=== PATIENT | female | born 1970 | race Caucasian/White ===

== ENCOUNTER → 2023-04-29 | Outpatient (CLI) | payer OTHER, SELFPAY ==
--- NOTE | 2023-04-29 12:53 | RAD_ITS ---
STUDY: X-RAY - LUMBOSACRAL SPINE REASON FOR EXAM: Female, 52 years old. Radiculopathy. TECHNIQUE: 6 view(s) of the lumbosacral spine, including lateral flexion and extension views were obtained. COMPARISON: None FINDINGS: Normal lumbar lordosis. No substantial scoliosis. Normal alignment of the vertebrae. Normal vertebral bodies and endplates. Normal disc space heights. Limited flexion and extension with no abnormal motion. Normal visualized soft tissue structures. RAD/L/S Spine Comp/w Bending Views IMPRESSION: Limited flexion and extension with no abnormal motion. No other abnormality Electronically Signed: Dariusz Albrecht MD at 14:33 EST ,
--- OUTSIDE RECORDS SUMMARY | 2023-04-29 13:21 | XMS RPT_ITS | CCD ---
Author Name Unknown Address [address] [place] [address] Organization [facility] Care Team Providers [facility] Clinical Marketer Name Role Phone DheerajApoorva escalante Unavailable Unavailable Keller, Ronan Unavailable Unavailable Deepika Palma Unavailable Unavailable Hue Manzo Unavailable Unavailable Tammie Mendoza Unavailable Unavailable Son Porter Primary Care Provider PREBISH, JM BORGES Admitting Unavailable PREBISH, JM BORGES Attending Unavailable PREBISH, JM BORGES Primary Care Unavailable KELLER, RONAN J Consulting Unavailable PROVIDER, UNKNOWN Consulting Unavailable KELLER, RONAN J Admitting Unavailable KELLER, RONAN J Attending Unavailable KELLER, RONAN J Primary Care Unavailable KELLER, RONAN J Consulting Unavailable PROVIDER, UNKNOWN Consulting Unavailable KELLER, RONAN J Admitting Unavailable KELLER, RONAN J Attending Unavailable KELLER, RONAN J Primary Care Unavailable KELLER, RONAN J Consulting Unavailable PROVIDER, UNKNOWN Consulting Unavailable REGAN LAWTON Admitting Unavailable REGAN LAWTON Attending Unavailable SUHA, REGAN T Primary Care Unavailable KELLER, RONAN J Consulting Unavailable PROVIDER, UNKNOWN Consulting Unavailable YASMINE PETIT Attending Unavailable SON PORTER Primary Care Unavailable TAYLOR SALAZAR Attending Unavail able TAYLOR SALAZAR Referring Unavail able SON PORTER Primary Care Unavailable Ronan Keller PA-C Unavailable Ronan Keller PA-C Unavailable [facility] Unavailable [phone] [facility] Unavailable [facility], . Unavailable Son Porter MD Unavailable Aristeo REGISTERED NURSES, Lashanda Unavailable Lio AZEVEDO, Anneliese J Unavailable Evaristo VALLADARES, Dudley Carter Unavailable Javi REGISTERED NURSES, Whitney Boyd Unavailable Unavailable Jarvis DEL REAL, Estephania Unavailable Unavailable Rodolfo VALLADARES, Reji Bazzi Unavailable Art AZEVEDO, Evita Ricci Unavailable Dilma CORDOVA, Eliza Dan Unavailable Unavail able Brian REGISTERED NURSES, Ritika Unavailable Unavailable King STEPH-C, Luis Enrique Chaidez Unavailable [phone] Georgi CORDOVA, Evita Bazzi Unavailable Unavailwilian Donahue RN, Amelia Unavailable Mutersbaugh REGISTERED NURSES, [place] K Unavailable Unavai yehuda Robertson REGISTERED NURSES, Adilia L Unavailable Unavailab le Caroltta REGISTERED NURSES, Son M Unavailable Unavailab dhaval Reyes MA, Ritika Unavailable Unavailable Aurelio VALLADARES, Omero Bazzi Unavailable Vess REGISTERED NURSES, Neilee L Unavailable Unavailable Wengerd REGISTERED NURSES, Connie Unavailable Unavailabl e Zaugg REGISTERED NURSES, Apoorva Unavailable Unavailable Unavailable Unavailable Allergies Allergy Classification Reported Allergen(s) Allergy Type Date of Onset Reaction(s) Facility (3 sources) Penicillins; Translations: [PENICILLINS] Propensity to adverse reactions 6 [facility] Work Phone: (2 sources) environmental [Other] Propensity to adverse reactions 6 [facility] Work Phone: (1 source) Penicillins Drug allergy (disorder) [facility] Repository (2 sources) levoFLOXacin; Translations: [LEVOFLOXACIN] Drug Allergy 3 Myalgia [facility] (1 source) OTHER; Translations: [OTHER] Propensity to adverse reactions (disorder) 6 [facility] Repository (1 source) Penicillin V Drug Allergy [facility] Medications Current Medications Medication Drug Class(es) Dates Sig (Normalized) Sig (Original) 24 hr buPROPion hydrochloride 150 mg extended release oral tablet (3 sources) Aminoketone Start: 03-18-2023 buPROPion HCL XL 150 mg 24 hr tablet, extended release ; 1 (one) Tablet ER 24HR daily for 0 days Quantity: 30 {Tablet} Refills: 5 Ordered: 18-Mar-2023 ROBERTO CARLOS Keller Start: 18-Mar-2023 Completed/Discontinued Medications Medication Drug Class(es) Dates Sig (Normalized) Sig (Original) azithromycin 250 mg oral tablet (2 sources) Macrolide Antimicrobial Start: 06-30-2021 End: 09-22-2021 Zithromax Z-Elie 250 MG Oral Tablet ; 2 (two) Tabs day one, then one daily for 4 days for 0 days Quantity: 1 {Packet} Refills: 0 Ordered: 22-Sep-2021 ROBERTO CARLOS Keller Start: 30-Jun-2021 End: 22-Sep-2021 Status: Inactive Problems Active Problems Problem Classification Problem Date Documented Da te Episodic/Chronic Abdominal pain (1 source) Pain in female pelvis; Translations: [Pelvic and perineal pain] 01-19-2014 Episodic Acute bronchitis (1 source) Acute bronchitis; Translations: [Acute bronchitis, unspecified] 04-29-2012 Episodic Anxiety disorders (2 sources) Anxiety state; Translations: [Generalized anxiety disorder] 01-23-2011 Chronic Cardiac dysrhythmias (3 sources) Palpitations; Translations: [Palpitations] 04-22-2023 Episodic Chronic obstructive pulmonary disease and bronchiectasis (3 sources) Bronchitis; Translations: [Bronchitis, not specified as acute or chronic] 03-01-2020 Episodic Genitourinary symptoms and ill-defined conditions (2 sources) Urinary symptoms ; Translations: [Unspecified symptoms and signs involving the genitourinary system] 04-22-2023 Episodic Headache; including migraine (6 sources) Headache disorder; Translations: [Headache] 04-22-2023 Episodic Past or Other Problems Problem Classification Problem Date Documented Date Episodic/Chronic Other female genital disorders (2 sources) Female genital organ symptoms; Translations: [Unspecified condition associated with female genital organs and menstrual cycle] Onset: 04-17-2011 04-17-2011 Episodic Unclassified (1 source) Cold Symptoms - Symptoms include nasal congestion, runny nose, ear pain, sore throat, chills, headache and facial pain, but do not include fever. The onset was gradual 5 day(s) ago. The symptoms occur constantly. The patient describes this as moderate in severity and worsening. The patient is not currently being treated for this problem. The patient has been exposed to an individual with similar symptoms. 04-22-2023 Unclassified (1 source) Cold Symptoms - Symptoms include sneezing, nasal congestion, runny nose, ear pain, sore throat, headache and facial pain, but do not include dry cough, productive cough, wheezing, fever, chills or general malaise. The onset was gradual 1 week(s) ago. The symptoms occur constantly. The patient describes this as moderate in severity and worsening. Current treatment includes non-prescription cold medication. 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 Medical history includes seasonal allergies and recurrent sinusitis, but patient denies history of tonsillectomy. 01-26-2023 Unclassified (1 source) Vaginal discharge - The discharge has been occurring for 5 days and has been constant. The discharge has been moderate and is characterized as yellow (thick, odorless). The symptoms have been associated with dysuria (Reports some mild burning with urination the last 2 days), vulvar irritation, vulvar edema and vulvar pruritis, but have not been associated with fever, urinary frequency, skin rash, urinary urgency, abdominal pain, chills, nausea or headache. There is no history of sexual contact with a person having an STD. There is no medical history of diabetes, vaginitis or recurrent urinary tract infections. The patient denies the use of antibiotics. 01-05-2023 Unclassified (1 source) Cold Symptoms - Symptoms include nasal congestion, runny nose, ear pain, sore throat, chills, general malaise, headache and facial pain, but do not include dry cough, productive cough, wheezing or fever. The onset was gradual 4 day(s) ago. The symptoms occur constantly. The patient describes this as moderate in severity and worsening. Current treatment includes non-prescription cold medication (sinus tylenol), allergy medications and nasal corticosteroids. Risk factors do not include smoking. The patient has not been exposed to an individual with a cough, an individual with an upper respiratory infection or an individual with similar symptoms. Medical history includes seasonal allergies and recurrent sinusitis, but patient denies history of recurrent strep pharyngitis, asthma, tonsillectomy or recurrent ear infections. Note for Upper respiratory infection : leaving for vacation tomorrow 10-29-2022 Unclassified (1 source) Cold Symptoms - Symptoms include sneezing, nasal congestion, ear pain, sore throat, headache and facial pain, but do not include dry cough, productive cough, fever or chills. The onset was sudden 2 week(s) ago. The symptoms occur constantly. The patient describes this as moderate in severity and worsening. Note for Upper respiratory infection : has taken sinus tylenol which relieves a little pain but then the pain comes back 04-13-2022 Unclassified (1 source) Cold Symptoms - Symptoms include nasal congestion, runny nose, purulent discharge, ear pain, sore throat, headache and facial pain, but do not include fever or chills. The onset was gradual 5 day(s) ago. The symptoms occur constantly. The patient describes this as moderate in severity and worsening. The patient is not currently being treated for this problem. The patient has been exposed to an individual with similar symptoms. Medical history includes seasonal allergies. Note for Upper respiratory infection : Family members have been sick recently. 09-22-2021 Unclassified (1 source) Cold Symptoms - Symptoms include nasal congestion, runny nose, ear pain, scratchy throat (post nasal drip), general malaise, headache and facial pain (sinus pain and pressure), but do not include sore throat, dry cough, productive cough, wheezing, fever or chills. The onset was gradual 1 week(s) ago. The symptoms occur constantly. The patient describes this as moderate in severity and worsening. Current treatment includes non-prescription cold medication (sinus tylenol). Risk factors do not include smoking. The patient has been exposed to an individual with similar symptoms ( - he had a cold), but has not been exposed to an individual with strep or secondhand smoke. Medical history includes seasonal allergies and recurrent sinusitis, but patient denies history of recurrent strep pharyngitis, asthma, tonsillectomy or recurrent ear infections. 06-24-2021 Unclassified (1 source) Cold Symptoms - Symptoms include nasal congestion, runny nose, ear pain, dry cough, chills, headache and facial pain, but do not include fever. The onset was gradual 5 day(s) ago. The symptoms occur constantly. The patient describes this as moderate in severity. The patient is not currently being treated for this problem. The patient has been exposed to an individual with similar symptoms (family also has similar symptoms). Note for Upper respiratory infection : No fever but felt like she did last night (checked temp and it was normal).Has had diarrhea x 2 days which is unusual for her when she has sinus infections.Has had covid shots plus booster. 04-09-2021 Unclassified (1 source) Cold Symptoms - Symptoms include sneezing, nasal congestion, runny nose, ear pain, sore throat, general malaise (fatigue), headache and facial pain, but do not include dry cough, productive cough, fever or chills. The onset was gradual 10 day(s) ago. The symptoms occur constantly and frequently. The patient describes this as moderate in severity and worsening. Current treatment includes non-prescription cold medication (sinus tylenol- last dose was last night). Risk factors do not include smoking. The patient has not been exposed to an individual with a cough, an individual with an upper respiratory infection, an individual with similar symptoms, an individual with strep or secondhand smoke. Medical history includes seasonal allergies and recurrent sinusitis, but patient denies history of recurrent strep pharyngitis, asthma, tonsillectomy or recurrent ear infections. Note for Upper respiratory infection : felt feverish but no fever- said she would get the sweats.Has been taking OTC tylenol sinus. 12-23-2020 Unclassified (1 source) Cold Symptoms - Symptoms include nasal congestion, runny nose, purulent discharge, ear pain, sore throat, headache and facial pain, but do not include dry cough or fever. The onset was gradual 1 week(s) ago. The symptoms occur constantly. The patient describes this as moderate in severity and worsening. Current treatment includes non-prescription cold medication (tylenol sinus). The patient has not been exposed to an individual with similar symptoms. Medical history includes seasonal allergies and recurrent sinusitis. Note for Upper respiratory infection : No fever, body aches, loss of taste or smell.Teeth pain. 07-01-2020 Unclassified (1 source) Cold Symptoms - Symptoms include dry cough, but do not include fever, chills, general malaise or headache. The onset was gradual. The symptoms occur constantly. The patient describes this as moderate in severity and worsening. The patient is not currently being treated for this problem. Medical history includes seasonal allergies and recurrent sinusitis. Note for Upper respiratory infection : Pt was treated for sinusitis with abx but a few days ago symptoms moved down into her chest and is now is having dry cough with chest tightness. Daughter has Covid but is quarantining in the basement and pt said she has not been around her. 04-11-2020 Unclassified (1 source) Cold Symptoms - Symptoms include nasal congestion, runny nose, purulent discharge, ear pain, sore throat and facial pain, but do not include sneezing, hoarseness, dry cough, productive cough, wheezing, fever, chills, general malaise or headache. The onset was 8 day(s) ago. The symptoms occur constantly. The patient describes this as moderate in severity and worsening. Current treatment includes increased fluid intake, allergy medications, nasal corticosteroids and acetaminophen. The patient has not been exposed to an individual with a cough, an individual with an upper respiratory infection, an individual with similar symptoms, an individual with strep or secondhand smoke. Medical history includes recurrent sinusitis (Patient last had sinusitis in December.). Note for Upper respiratory infection : Patient denies being in contact with anyone who has tested positive for COVID. 03-01-2020 Unclassified (1 source) Cold Symptoms - Symptoms include sneezing, nasal congestion, purulent discharge, ear pain, sore throat (sore glands, teeth hurt), scratchy throat, dry cough, chills, general malaise, headache and facial pain, but do not include runny nose, wheezing or fever. The onset was gradual 5 day(s) ago. The symptoms occur constantly. The patient describes this as moderate in severity and worsening. Current treatment includes non-prescription cold medication. Risk factors do not include smoking. The patient has not been exposed to an individual with a cough, an individual with an upper respiratory infection or an individual with strep. Medical history includes seasonal allergies and recurrent sinusitis, but patient denies history of asthma or tonsillectomy. 12-05-2019 Unclassified (1 source) Cold Symptoms - Symptoms include nasal congestion, runny nose, ear pain, scratchy throat, hoarseness, dry cough, headache and facial pain, but do not include sore throat, fever, chills or general malaise. The onset was gradual 2 week(s) ago. The symptoms occur constantly. The patient describes this as moderate in severity and unchanged. Current treatment includes non-prescription cold medication (tylenol cold and congestion this am). 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 Medical history includes seasonal allergies and recurrent sinusitis, but patient denies history of recurrent strep pharyngitis, asthma, tonsillectomy or recurrent ear infections. 05-19-2019 Unclassified (1 source) Cold Symptoms - Symptoms include nasal congestion (lotas of pressure and drainage down throat), runny nose, ear pain, scratchy throat, dry cough, chills, general malaise, headache and facial pain. The onset was gradual 10 day(s) ago. The symptoms occur constantly. The patient describes this as moderate in severity and worsening. Current treatment includes non-prescription cold medication. Risk factors do not include smoking. The patient has been exposed to an individual with similar symptoms ( and kids), but has not been exposed to an individual with a cough, an individual with an upper respiratory infection, an individual with strep or secondhand smoke. Medical history includes seasonal allergies and recurrent sinusitis, but patient denies history of recurrent strep pharyngitis, asthma, tonsillectomy or recurrent ear infections. 04-04-2019 Unclassified (1 source) Cold Symptoms - Symptoms include nasal congestion, runny nose, non-purulent sputum, ear pain, dry cough, productive cough and headache, but do not include sneezing, sore throat, scratchy throat, fever or general malaise. The onset was gradual 5 day(s) ago. The symptoms occur constantly. The patient describes this as moderate in severity and worsening. Current treatment includes allergy medications and acetaminophen. The patient has been exposed to an individual with an upper respiratory infection. Medical history includes seasonal allergies and recurrent sinusitis, but patient denies history of recurrent ear infections. 02-07-2019 Unclassified (1 source) Cold Symptoms - Symptoms include nasal congestion, runny nose, purulent discharge, ear pain, ear fullness, sore throat, chills, general malaise, headache and facial pain, but do not include sneezing, dry cough, productive cough or fever. The onset was gradual 5 day(s) ago. The symptoms occur constantly. The patient describes this as moderate in severity and worsening. Current treatment includes non-prescription cold medication. The patient has been exposed to an individual with an upper respiratory infection. Medical history includes seasonal allergies and recurrent sinusitis, but patient denies history of asthma or recurrent ear infections. 01-16-2019 Unclassified (1 source) Cold Symptoms - Symptoms include nasal congestion, runny nose, purulent discharge, dry cough, chills, headache and facial pain, but do not include sore throat (drainage in back of throat) or fever. The onset was gradual 5 day(s) ago. The symptoms occur constantly. The patient describes this as moderate in severity and unchanged. Current treatment includes non-prescription cold medication and allergy medications. 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 Medical history includes seasonal allergies and recurrent sinusitis, but patient denies history of recurrent strep pharyngitis, asthma, tonsillectomy or recurrent ear infections. 08-24-2018 Unclassified (1 source) Elbow pain - The onset of the pain has been sudden following no specific incident and has been occurring in a persistent pattern for 6 months. The course has been increasing. The pain is moderate to severe and is characterized as a dull aching. The pain is described as being located down the entire arm (and up above elbow a little) in both elbows. There were no aggravating factors. The pain is relieved by medications (biofreeze). Note for Elbow pain : Pain goes completely down arms and into wrist.Really bad into the evenings - trouble sleeping due to the right one.Biofreeze does give temporary relief. 06-30-2018 Unclassified (1 source) Cold Symptoms - Symptoms include nasal congestion, purulent discharge (post nasal), ear pain, scratchy throat, dry cough, chills, general malaise and headache, but do not include sneezing, sore throat or fever. The onset was gradual 6 day(s) ago. The symptoms occur constantly. The patient describes this as moderate in severity and worsening. Current treatment includes non-prescription cold medication, allergy medications and acetaminophen. Risk factors do not include smoking. The patient has been exposed to an individual with similar symptoms. Medical history includes seasonal allergies and recurrent sinusitis, but patient denies history of asthma or recurrent ear infections. 01-17-2018 Unclassified (1 source) vaginal itching - Patient is here complaining of having a lot of vaginal itching since last week. She did use over the counter 1 day generic of monistat and it did help but then it started to come back Wednesday with itching. No discharge that she knows of. Also having a little burning when she urinates. No frequency or urgency. No abdominal or back pain. No nausea or fever. 12-23-2017 Unclassified (1 source) Cold Symptoms - Symptoms include nasal congestion, runny nose, ear pain, sore throat, productive cough, chills, general malaise, headache and facial pain, but do not include fever. The onset was gradual 1 week(s) ago. The symptoms occur constantly. The patient describes this as moderate in severity and unchanged. Current treatment includes non-prescription cold medication and sinus tylenol. 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 Medical history includes seasonal allergies and recurrent sinusitis, but patient denies history of recurrent strep pharyngitis, asthma, tonsillectomy or recurrent ear infections. Note for Upper respiratory infection : Was treated with cefdinir earlier in the month which helped but didn't take away symptoms completely - now they have worsened. 06-24-2017 Unclassified (1 source) Cold Symptoms - Symptoms include nasal congestion, runny nose, ear pain, sore throat (4-5 days ago started), chills, general malaise, headache and facial pain, but do not include dry cough, productive cough, wheezing or fever. The onset was gradual 5 day(s) ago. The symptoms occur constantly. The patient describes this as moderate in severity and worsening. Current treatment includes non-prescription cold medication (sinus tylenol). The patient has been exposed to an individual with similar symptoms. Medical history includes seasonal allergies and recurrent sinusitis (last was in Apr 2017), but patient denies history of recurrent strep pharyngitis, asthma, tonsillectomy or recurrent ear infections. 06-03-2017 Unclassified (1 source) Cold Symptoms - Symptoms include nasal congestion, runny nose, purulent discharge, ear pain, ear fullness, sore throat, dry cough, chills, general malaise, headache and facial pain, but do not include sneezing. The onset was gradual 4 day(s) ago. The symptoms occur constantly. The patient describes this as moderate in severity and worsening. Current treatment includes acetaminophen. Risk factors do not include smoking. The patient has been exposed to an individual with similar symptoms. Medical history includes seasonal allergies and recurrent sinusitis, but patient denies history of asthma or recurrent ear infections. 04-20-2017 Unclassified (1 source) Cold Symptoms - Symptoms include nasal congestion, runny nose, ear pain, sore throat (scrathcy), dry cough and headache, but do not include fever, chills or general malaise. The onset was gradual 1 week(s) ago. The symptoms occur constantly. The patient describes this as moderate in severity and worsening. Current treatment includes sinus tylenol. The patient has been exposed to an individual with similar symptoms (family). Medical history includes seasonal allergies and recurrent sinusitis, but patient denies history of recurrent strep pharyngitis, asthma, tonsillectomy or recurrent ear infections. Note for Upper respiratory infection : No sinus rinses but does a nasal spray.Last sinus infection was 02/2016. 01-22-2017 Unclassified (1 source) Cold Symptoms - Symptoms include nasal congestion, runny nose, purulent discharge, ear pain (left), scratchy throat, fever, chills, headache and facial pain, but do not include sneezing, dry cough, productive cough, wheezing or general malaise. The onset was gradual 5 day(s) ago. The symptoms occur constantly. The patient describes this as moderate in severity and worsening. Current treatment includes acetaminophen. Risk factors do not include smoking. The patient has not been exposed to an individual with similar symptoms. Medical history includes seasonal allergies, recurrent sinusitis and recurrent strep pharyngitis, but patient denies history of asthma or recurrent ear infections. 04-13-2016 Unclassified (1 source) Cold Symptoms - Symptoms include nasal congestion, runny nose, ear pain (ear pressure), ear fullness, sore throat (post nasal drainage), hoarseness, chills, general malaise (body aches), headache (severw howell since yesterday - bilateral facial pressure and surrounding her eyes) and facial pain, but do not include sneezing, dry cough, productive cough or fever. The onset was gradual 10 day(s) ago. The symptoms occur constantly. The patient describes this as moderate in severity and worsening. Current treatment includes allergy medications, acetaminophen (Sinus Tylenol) and Flonase. Risk factors do not include smoking. The patient has been exposed to an individual with an upper respiratory infection (daughter had [place]. Other daughter and had cold symptoms). Medical history includes seasonal allergies, recurrent sinusitis and recurrent strep pharyngitis, but patient denies history of asthma or tonsillectomy. Note for Upper respiratory infection : Has not made an ENT apt yet. 02-10-2016 Unclassified (1 source) Cold Symptoms - Symptoms include nasal congestion, runny nose, purulent discharge, ear pain, ear fullness, sore throat, general malaise, headache (severw howell since yesterday - bilateral facial pressure and surrounding her eyes) and facial pain, but do not include sneezing, dry cough or fever. The onset was gradual 5 day(s) ago. The symptoms occur constantly. The patient describes this as moderate in severity and worsening. Current treatment includes allergy medications and acetaminophen. Risk factors do not include smoking. The patient has not been exposed to an individual with similar symptoms. Medical history includes seasonal allergies and recurrent sinusitis, but patient denies history of asthma or tonsillectomy. Note for Upper respiratory infection : Pt. c/o migraine symptoms behind her eyes x 2 days. states that she gets these headaches at least twice per month - does not have periods so unaware if they are hormonally triggered - always surrounding her right eye, they do not feel like her typical sinus headaches...also notes right eye tearing with HOWELL, but denies neurological deficit 11-11-2015 Unclassified (1 source) Cold Symptoms - Symptoms include sneezing, nasal congestion, runny nose, ear pain (and teeth hurt), sore throat, chills, headache and facial pain, but do not include fever. The onset was gradual. The patient describes this as moderate in severity and worsening. Current treatment includes non-prescription cold medication (Tylenol Sinus and uses Flonase daily.). Risk factors do not include smoking. The patient has been exposed to an individual with similar symptoms (Daughter and have similar symptoms.). Medical history includes recurrent sinusitis (Pt had an appt scheduled with Dr. Griffiths on August 13 but had to cancel but has not called back to reschedule yet. She states she does plan to do so. Pt last treated on 07/16/15 with Moxifloxacin 400mg - symptoms resolved completely with this.). Note for Upper respiratory infection : Symptoms started about 1 1/2 weeks ago. 09-16-2015 Unclassified (1 source) Cold Symptoms - Symptoms include nasal congestion, runny nose, ear pain, sore throat, headache and facial pain, but do not include dry cough, productive cough or fever. The onset was gradual (said since April she has taken 2 rounds of antibiotics and she will get a little better but not completely gone. Wonders what next step is) month(s) ago. The symptoms occur constantly. The patient describes this as moderate in severity and unchanged. Current treatment includes tylenol sinus. Medical history includes seasonal allergies and recurrent sinusitis, but patient denies history of recurrent strep pharyngitis, asthma or recurrent ear infections. Note for Upper respiratory infection : Chest tight feeling also. No wheeze or SOB.Has tried diet changes (low sugar, flour) which have helped in past but it is not helping this time; still feels sick.Has been on levofloxacin, cefidinir, and doxy this winter; levaquin makes arms/legs hurt so she would like to avoid.has been using a maulik pot regularly for the last few weeks and has used it with baby shampooSaw ENT remotely and surgery was considered due to deviated septum but she decided not to proceed. Did not see relief with immunotherapy which she did remotely for 1 year. 07-16-2015 Unclassified (1 source) Cold Symptoms - Symptoms include nasal congestion, runny nose, sore throat (constant but better than it was; does have PND), productive cough (chest hurts) and fever (3 days; Tmax 99.7), but do not include headache. The onset was gradual 10 day(s) ago. The symptoms occur constantly. The patient describes this as moderate in severity and worsening. Current treatment includes non-prescription cold medication (yesterday). 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 Medical history includes seasonal allergies and recurrent sinusitis, but patient denies history of recurrent strep pharyngitis, asthma, tonsillectomy or recurrent ear infections. 05-24-2015 Unclassified (1 source) Cold Symptoms - Symptoms include nasal congestion (post-nasal drip), runny nose, ear pain (bilateral), sore throat, dry cough (from PND), general malaise, headache and facial pain (bilateral), but do not include fever or chills. The onset was gradual 5 day(s) ago. The symptoms occur constantly. The patient describes this as moderate in severity and worsening. Current treatment includes acetaminophen. Risk factors do not include smoking. The patient has been exposed to an individual with a cough, an individual with an upper respiratory infection and an individual with similar symptoms. Medical history includes seasonal allergies and recurrent sinusitis, but patient denies history of asthma or recurrent ear infections. 04-16-2015 Unclassified (1 source) Cold Symptoms - Symptoms include sneezing, nasal congestion, runny nose, ear pain (bilateral), sore throat (a little), general malaise, headache and facial pain (bilateral), but do not include dry cough, productive cough or fever. The onset was sudden 1 week(s) ago. The symptoms occur constantly. The patient describes this as mild and worsening. Current treatment includes acetaminophen (Sinus Tylenol). Risk factors do not include smoking. The patient has not been exposed to an individual with a cough, an individual with an upper respiratory infection, an individual with similar symptoms, an individual with strep or secondhand smoke. Medical history includes seasonal allergies and recurrent sinusitis, but patient denies history of asthma. Note for Upper respiratory infection : treated late Dec with levofloxacin for and was slow to improve; gordy called in mid-jan but she never ended up needing as sx improved 03-04-2015 Unclassified (1 source) Cold Symptoms - Symptoms include nasal congestion, runny nose, ear pain (both ears, hurts down into her teeth), sore throat, chills, general malaise, headache and facial pain, but do not include dry cough, productive cough or fever. The onset was 10 day(s) ago. The symptoms occur constantly. The patient describes this as moderate in severity and worsening. Current treatment includes non-prescription cold medication, allergy medications and acetaminophen (sinus Tylenol). Risk factors do not include smoking. The patient has been exposed to an individual with an upper respiratory infection and an individual with similar symptoms, but has not been exposed to an individual with a cough, an individual with strep or secondhand smoke. Medical history includes seasonal allergies and recurrent sinusitis, but patient denies history of asthma or tonsillectomy. Note for Upper respiratory infection : Reports getting frequent sinus infections. reviewed by jim 12-27-2014 Unclassified (1 source) Cold Symptoms - Symptoms include nasal congestion (and chest congestion), runny nose, ear pain, sore throat, productive cough (yellow sputum), general malaise and headache, but do not include fever. The onset was sudden 10 day(s) ago. The symptoms occur constantly. The patient describes this as moderate in severity and worsening. Current treatment includes non-prescription cold medication (Lei-seltzer ) and acetaminophen (cold medication). Risk factors do not include smoking. The patient has been exposed to an individual with similar symptoms, but has not been exposed to secondhand smoke. Medical history includes seasonal allergies and recurrent sinusitis (treated august cefdinir and july with levaquin), but patient denies history of asthma. 09-11-2014 Unclassified (1 source) Cold Symptoms - Symptoms include nasal congestion, runny nose, purulent discharge, ear fullness, sore throat, dry cough, general malaise, headache and facial pain, but do not include sneezing, ear pain, fever or chills. The onset was gradual 1 week(s) ago. The symptoms occur constantly. The patient describes this as moderate in severity and worsening. Current treatment includes non-prescription cold medication and acetaminophen. Risk factors do not include smoking. The patient has been exposed to an individual with similar symptoms (states that she fully resolved after levaquin, however her kids got sick and then she got sick again). Medical history includes seasonal allergies, but patient denies history of asthma or tonsillectomy. Note for Upper respiratory infection : Pt. c/o teeth hurting 08-13-2014 Unclassified (1 source) Cold Symptoms - Symptoms include nasal congestion, runny nose, ear pain, ear fullness, headache and facial pain, but do not include sore throat, dry cough, productive cough or fever. The onset was sudden 1 week(s) ago. The symptoms occur constantly. The patient describes this as moderate in severity and worsening. The patient is not currently being treated for this problem. The patient has been exposed to an individual with similar symptoms (family). Medical history includes recurrent sinusitis (Last on an antibiotic in April.). 07-19-2014 Unclassified (1 source) Cold Symptoms - Symptoms include nasal congestion, ear fullness, sore throat, chills, headache and facial pain (teeth hurt too), but do not include dry cough, productive cough or fever. The onset was gradual 10 day(s) ago. The symptoms occur constantly. The patient describes this as moderate in severity and unchanged. Current treatment includes non-prescription cold medication, allergy medications and a decongestant nasal spray. The patient has been exposed to an individual with similar symptoms (daughter). Medical history includes seasonal allergies and recurrent sinusitis, but patient denies history of recurrent strep pharyngitis, asthma, tonsillectomy or recurrent ear infections. 03-21-2014 Unclassified (1 source) follow up depression - Was restarted on citalopram 40mg and also added wellbutrin 150mg . Here to follow up to those changes and see how she is doing. She states that she is doing really well on this combination. No side effects noted.Finishing a course of bactrim for persistent sinus infection. 03-05-2014 Unclassified (1 source) Follow up for multiple chronic conditions - The patient is here for follow-up of depression and other condition(s) (insomnia, rhinitis). The patient always takes the prescribed medications. No side effects noted (Was given escitalopram in October, took it for 6 weeks and decided it was not effective. Resumed old script of citalopram 40mg and is doing better.). The patient states that in general mood has improved. Note for Multiple chronic conditions follow-up : -Will get flu vaccine at work.Has had sinus sx for 1.5 weeks and it seems to be worsening. Treated for pelvic pain in Jan and sx resolved with levaquin X3 days. 02-02-2014 Unclassified (1 source) UTI - Symptoms include abdominal pain and back pain, but do not include dysuria, urinary frequency or urinary urgency. The pain is located in the suprapubic area. The pain radiates to the back. The patient describes the pain as sharp. Onset was sudden 2 week(s) ago. There is no known event that preceded symptom onset. The symptoms occur constantly. The patient describes this as moderate in severity and worsening. Symptoms are relieved by non-opioid analgesics. Associated symptoms include chills and vaginal discharge, but do not include fever, nausea or vomiting. 01-19-2014 Unclassified (1 source) Cold Symptoms - Symptoms include nasal congestion, ear pain, ear fullness, sore throat, chills, general malaise, headache and facial pain (teeth hurt), but do not include fever (feels warm). The onset was sudden 1 week(s) ago. The symptoms occur constantly. The patient describes this as moderate in severity and worsening. Current treatment includes non-prescription cold medication. Risk factors do not include child in daycare or smoking. The patient has not been exposed to an individual with similar symptoms. 11-24-2013 Unclassified (1 source) Cold Symptoms - Symptoms include nasal congestion, purulent discharge (with PND), ear pain, ear fullness, sore throat, chills, general malaise, headache and facial pain (teeth pain; bilateral), but do not include dry cough or fever. The onset was sudden 10 day(s) ago. The symptoms occur constantly. The patient describes this as moderate in severity and worsening. Current treatment includes non-prescription cold medication. Risk factors do not include child in daycare or smoking. The patient has not been exposed to an individual with similar symptoms. Medical history includes recurrent sinusitis. Note for Upper respiratory infection : going out of town this weekend and wants to get this under control due to travel 08-15-2013 Unclassified (1 source) Cold Symptoms - Symptoms include nasal congestion, ear pain, ear fullness, sore throat, chills, general malaise, headache and facial pain. The onset was sudden 4 day(s) ago. The symptoms occur constantly. The patient describes this as moderate in severity and worsening. Current treatment includes non-prescription cold medication. Risk factors do not include smoking. The patient has been exposed to an individual with similar symptoms. Medical history includes recurrent strep pharyngitis (April 2013). 06-27-2013 Unclassified (1 source) Cold Symptoms - Symptoms include nasal congestion, purulent discharge, hoarseness, chills, general malaise and facial pain, but do not include fever. The onset was gradual 10 day(s) ago (follows cold she had 2 weeks ago; has been run down and busy lately). The symptoms occur constantly. The patient describes this as moderate in severity and worsening. Current treatment includes allergy medications. Risk factors do not include smoking. The patient has not been exposed to an individual with similar symptoms. Medical history includes recurrent sinusitis. 02-02-2013 Unclassified (1 source) Cold Symptoms - Symptoms include nasal congestion, purulent discharge (post nasal), ear pain, scratchy throat, general malaise, headache and facial pain, but do not include sneezing, runny nose, productive cough or fever. The onset was sudden 1 week(s) ago. The symptoms occur constantly. The patient describes this as moderate in severity and worsening. Current treatment includes non-prescription cold medication (tylenol sinus). Risk factors do not include smoking. The patient has been exposed to an individual with an upper respiratory infection. Medical history includes seasonal allergies and recurrent sinusitis, but patient denies history of asthma. 10-04-2012 Unclassified (1 source) chest tightness - Patient states she started 6wks ago with this weird feeling in her chest . She states it occurs at anytime; rest or exertion. It is a tightness across the middle of her chest and also pressure that feels like soemone is sitting on her. She said it usually lasts 5 min or more. She has notices that if she is exercising and the pain comes on she gets short of breath. But if she is resting and the pain comes on, she is not short of breath. She has some family history of heart problems. Grandfather of an DC and father has had stent placement. She has not had heartburn.No new activities or things that would have strained muscle. No new stresses.Initially had a few episodes 6 weeks ago; then has had increase in sx over the last 2 weeks.Pain radiates to shoulder/shoulder blade; describes as a tightness. No apparent trigger for symptoms. Episodes are lasting longer (2 min at onset now longer). Some associated palpitations (but may be related to anxiety about the sx). no lightheaded except when walking. No recent cough or cold sx or sore throat. Is sore touch chest during an episode. In between can reproduce a tightness with palpation. 09-02-2012 Unclassified (1 source) Cold Symptoms - Symptoms include sneezing, nasal congestion, runny nose (drainage is thick; +PND), sore throat, dry cough, chills, headache and facial pain (teeth, ears, face). The onset was gradual 1 week(s) ago. The symptoms occur constantly. The patient describes this as moderate in severity and unchanged. Current treatment includes non-prescription cold medication (sinus rinses, tylenol sinus, lei seltzer). The patient has been exposed to an individual with similar symptoms (family members). Medical history includes seasonal allergies and recurrent sinusitis, but patient denies history of recurrent strep pharyngitis, asthma, tonsillectomy or recurrent ear infections. 07-15-2012 Unclassified (1 source) UTI - Symptoms include dysuria, urinary frequency, urinary urgency, hematuria, flank pain (bilateral) and abdominal pain. The pain is located in the back. There is no radiation. The patient describes the pain as aching. Onset was sudden 1 week(s) ago. The symptoms occur constantly. The patient describes this as moderate in severity and worsening. Associated symptoms do not include fever (feels warm at times), nausea or vaginal discharge (has had some spotting this week). Note for UTI : Patient started with vaginal itching and she used an otc tx for 7 days and the symptoms didn't get better. Has an IUD and normally does not have a period. [place] is painful with these symptoms. 06-20-2012 Unclassified (1 source) Cold Symptoms - Symptoms include nasal congestion, sore throat, productive cough, fever (Tmax 100, this AM), general malaise, headache and facial pain, but do not include ear pain. The onset was gradual (felt cold coming on for about a week) 2 day(s) ago. The symptoms occur constantly. The patient describes this as mild and worsening. Current treatment includes non-prescription cold medication. Risk factors do not include child in daycare or smoking. The patient has not been exposed to an individual with similar symptoms. Note for Upper respiratory infection : about a month ago, had some pressure in chest with a cold that improved butnever completely resolved and now has recurred; no flu shot this year 04-29-2012 Unclassified (1 source) Cold Symptoms - Symptoms include nasal congestion, runny nose, purulent discharge (thick yellow), ear pain, sore throat, chills, general malaise, headache and facial pain. The onset was gradual 10 day(s) ago. The symptoms occur constantly. The patient describes this as moderate in severity and worsening. Current treatment includes non-prescription cold medication (sinus tylenol). Medical history includes recurrent sinusitis. Note for Upper respiratory infection : Has done sinus rinses in the past without improvement. No coughing. No ill contacts. Pt says that symptoms are related to her diet which she admits to being poor within the past 4-5 weeks. Has seen ENT in the past and had sinus CT done which only showed a deviated septum. Has had allergy shots in the past as well. 03-02-2012 Unclassified (1 source) Cold Symptoms - Symptoms include nasal congestion, runny nose, ear pain (bilateral), sore throat, chills, headache and facial pain (teeth hurt, worse on left today), but do not include dry cough (does feel some chest tightness), productive cough or fever. The onset was gradual 11 day(s) ago. The symptoms occur constantly. The patient describes this as moderate in severity and worsening. Current treatment includes non-prescription cold medication (tylenol sinus). Risk factors do not include smoking. The patient has been exposed to an individual with an upper respiratory infection. Medical history includes recurrent sinusitis (last episode treated 07/26 with Levaquin; has kept recurrence under control with diet modifications but this flared due to URI exposure; still plans to see ENT but has not scheduled yet.). 09-21-2011 Unclassified (1 source) Hand pain - The onset of the hand pain has been sudden and has been occurring in a persistent pattern for 6 months. The course has been recurrent. The hand pain is characterized as a moderate dull aching. The hand pain is described as being located in the entire hand (and fingers). The hand pain is aggravated by making a fist. There have been no relieving factors. The symptoms have been associated with difficulty with grasping and difficulty with pinching, but have not been associated with joint swelling, warmth, erythema or fever. Note for Hand pain : Pt states that the pain is mild all the time, but sometimes it worsens. She has trouble grasping things and picking things up. She does have carpal tunnel, but states this is different. Does plan on having surgery for that (bilateral) this summer. Has had cortisone injections for that and is doing better from that standpoint. Her mother has arthritis and she feels she probably has that too. Wants to see if it is arthritis. Localizes from palm of hand, shooting to thumb, no hand cramps but pain is so severe it limits strength in hands. Has not used med for it. Activity flares symptoms (even reading a book, typing, etc). Can bother her at night if flaring.. Has a good ergonomic set up at home. CTS sx include wrist pain and numb and tingling fingers (numb hands while sleeping). 08-13-2011 Unclassified (1 source) Cold Symptoms - Symptoms include nasal congestion, runny nose, purulent discharge, ear pain, ear fullness, sore throat, dry cough, general malaise, headache and facial pain (and dental pain), but do not include sneezing, fever or chills. The onset was gradual 2 week(s) ago. The symptoms occur constantly. The patient describes this as moderate in severity and worsening (in past 2 days). Current treatment includes non-prescription cold medication and acetaminophen. Risk factors do not include smoking. The patient has been exposed to an individual with an upper respiratory infection. Medical history includes seasonal allergies and recurrent sinusitis, but patient denies history of recurrent strep pharyngitis, asthma, tonsillectomy or recurrent ear infections. 07-27-2011 Unclassified (1 source) Cold Symptoms - Symptoms include nasal congestion, chills, general malaise, headache and facial pain (worse on right). The onset was sudden 5 day(s) ago. The symptoms occur constantly. The patient describes this as moderate in severity and worsening. Current treatment includes non-prescription cold medication. The patient has not been exposed to an individual with similar symptoms. Medical history includes recurrent sinusitis (most recently treated in late Apr with Levaquin and did improved until this week; contemplating allergy testing (had testing in past that showed winter and summer allergies; did immunotherapy for 6 months and saw no improvement). Note for Cold Symptoms : Also c/o her teeth hurting. 06-05-2011 Unclassified (1 source) Cold Symptoms - Symptoms include nasal congestion, runny nose, sore throat, headache and facial pain, but do not include fever or chills. The onset was gradual 1 week(s) ago. The symptoms occur constantly. The patient describes this as moderate in severity and worsening. Current treatment includes non-prescription cold medication (tylenol sinus). Risk factors do not include smoking. The patient has been exposed to an individual with similar symptoms. Medical History Includes recurrent sinusitis (just finished course of levaquin in mid-Mar; wonders if some of this is allergies). 04-20-2011 Unclassified (1 source) Cold Symptoms - Symptoms include nasal congestion, ear pain (bilateral), chills, general malaise, headache and facial pain, but do not include fever. The onset was sudden 2 week(s) ago (felt better last week and has worsened again the last several days). The symptoms occur constantly. The patient describes this as moderate in severity and worsening. Current treatment includes non-prescription cold medication and acetaminophen. The patient has been exposed to an individual with an upper respiratory infection (daughter), but has not been exposed to an individual with similar symptoms. Medical History Includes recurrent sinusitis. 03-16-2011 Unclassified (1 source) f/u depression and anxiety - Pt is on citalopram 40mg daily for anxiety and depression. She states she is feeling well on this dose, and does not want it changed. Feels her sx are controlled well. Finishing course of Levaquin and not seeing much improvement yet. 01-23-2011 Unclassified (1 source) Cold Symptoms - Symptoms include nasal congestion, runny nose, purulent discharge, ear pain, headache and facial pain (teeth hurt), but do not include sore throat, hoarseness, dry cough, fever or chills. The onset was gradual 2 week(s) ago. The symptoms occur constantly. The patient describes this as moderate in severity and worsening. Current treatment includes non-prescription cold medication (tylenol sinus) and acetaminophen. Risk factors do not include smoking. Note for Cold Symptoms : History of recurrent sinusitis 12-19-2010 Unclassified (1 source) Cold Symptoms - Symptoms include sneezing, nasal congestion, runny nose, ear pain, sore throat, headache and facial pain, but do not include fever. The onset was gradual . The symptoms occur constantly. The patient describes this as mild and worsening. Medical History Includes recurrent sinusitis. Note for Cold Symptoms : pt is taking sinus tylenol - temporary relief. The trigger for her symptoms is a high sugar diet. Has discused ENT referral in the past with Dr. Porter and at this time would like to hold off. Nasal drainage is thick and colored. + PND. Symptoms have been for the last week. Last episode of sinusitis was 06/2010. 10-17-2010 Unclassified (1 source) Ear pain - The onset of the pain has been gradual and has been occurring in a persistent pattern for 2 weeks. The course has been constant. The pain is described as a moderate dull aching and pressure. The pain is described as being located in the inner ear. The pain is felt in both ears (left worse ). There has been no associated fever, runny nose or cough. Medical History Includes recurrent sinusitis (had 3 episodes of sinusitis this winter.). Note for Ear pain : told the phone nurse she had drainage coming from her ear. she did not mean that it was draining out of her ear, however. she meant that she feels drainage down her throat. 09-06-2010 Unclassified (1 source) Cold Symptoms - Symptoms include sneezing, nasal congestion, runny nose, ear pain, sore throat, chills, general malaise, headache and facial pain, but do not include fever. The onset was sudden 1 week(s) ago. The symptoms occur constantly. The patient describes this as moderate in severity and worsening. Current treatment includes non-prescription cold medication. 06-25-2010 Unclassified (1 source) Cold Symptoms - Symptoms include nasal congestion, purulent discharge, ear pain, sore throat, productive cough, headache and facial pain, but do not include fever. The onset was gradual 2 week(s) ago. The patient describes this as worsening. Current treatment includes non-prescription cold medication. Note for Cold Symptoms : at onset, gets pain in back of neck and behind ears, then to ears, then to sinuses, then to throat and then becomes full blown sinus infection. This has been a recurrent pattern. Has been trying to limit the foods/preservatives that she knows trigger these. Has not been as diligent with that since feeling better. 05-12-2010 Unclassified (1 source) Cold Symptoms - Symptoms include nasal congestion, sore throat, headache and facial pain, but do not include fever. The onset was 2 week(s) ago. The symptoms occur constantly. The patient describes this as moderate in severity and unchanged. The patient is not currently being treated for this problem. Note for Cold Symptoms : is frustrated because she has been eating well and trying to prevent infection but then caught a cold from her kids and that has progressed to this. 02-28-2010 NEGATED: Highlighted row has not occurred!Residual codes; unclassified (20 sources) Disease Episodic Results Test Name Value Interpretation Reference Range Facil ity Vital Signs Date Time Vital Sign Value Performing Clinician Lon romero 04-22-2023 13:53-0500 Body height 178.44 cm [facility] 04-22-2023 13:53-0500 Body mass index (BMI) [Ratio] 22.22 kg/m2 [facility] Kam [employer] [facility]. 04-22-2023 13:53-0500 Body surface area Derived from formula 1.88 m2 [facility].; [facility] [employer] [facility]. 04-22-2023 13:53-0500 Body temperature 97.8 [degF] [facility] [facility] Encounters Encounter Date Encounter Type Care Provider Facility Start: 04-22-2023 End: 04-22-2023 Office outpatient visit 15 minutes Ronan Keller PA-C [facility] Start: 02-09-2023 End: 02-09-2023 ambulatory YASMINE PETIT Facility:[facility] Start: 02-02-2023 End: 02-02-2023 Medication Ronan Keller PA-C Work Phone: [facility] Start: 01-26-2023 End: 01-26-2023 Office outpatient visit 15 minutes Ronan Keller PA-C Work Phone: [facility] [facility] Start: 01-05-2023 End: 01-05-2023 Office outpatient visit 15 minutes Ron[facility] Keller [facility]C [facility] Start: 12-07-2022 End: 12-07-2022 ambulatory TAYLOR TRIPP Facility:[facility] Start: 12-07-2022 End: 12-07-2022 Patient encounter procedure Taylor Tripp MD Work Phone: OB/Gynecology Procedures Date Procedure Procedure Detail Performing Clinician Start: 10-05-2022 End: 10-05-2022 Screening colonoscopy Evita frank RN Plan of Treatment Date Care Activity Detail Author Start: 08-26-2025 HPV TESTING HPV TESTING [facility] Start: 08-26-2025 PAP TESTING PAP TESTING [facility] Start: 01-01-2023 Influenza vaccination [facility] Start: 07-31-2022 Chest x-ray CHEST X-RAY, P A AND LATERAL ([id number]) Start: 31-Jul-2022 Intent [employer]; [employer] Start: 05-03-2022 DEPRESSION ASSESSMENT DEPRESSION ASS ESSMENT [facility] Start: 10-09-2021 SHINGRIX VACCINE (1 of 2) SHINGRIX VACCINE (1 of 2) [facility] Start: 08-26-2021 Mammography MAMMOGRAM [facility] Start: 09-05-2020 COVID-19 VACCINE (3 - Booster for Pfizer series) COVID-19 VACCINE (3 - Booster for Pfizer series) [facility] Start: 04-04-2019 Patient Education Sinusitis *: sinus infection Indication: Acute sinusitis (Renamed from Acute sinusitis, recurrence not specified, unspecified location) Start: 04-Apr-2019 Instruction Type: Patient Education [employer]; [employer] Start: 10-09-2016 COLOGUARD (FIT-DNA) COLOGUARD (FIT-D NA) [facility] Start: 10-09-2016 Colonoscopy COLONOSCOPY [facility] Start: 10-09-2016 COLORECTAL CANCER SCREENING COLORECTAL CANCER SCREENING [facility] Start: 10-09-[address] COLONOGRAPHY [facility] Start: 10-09-2016 DIABETES SCREEN DIABETES SCREEN [facility] Start: 10-09-2016 FECAL OCCULT BLOOD FECAL OCCULT BLOO D [facility] Start: 10-09-2016 LIPID SCREEN LIPID SCREEN [facility] Start: 10-09-2016 SIGMOIDOSCOPY SIGMOIDOSCOPY [facility] Start: 06-27-2013 Patient Education Sinusitis *: sinus infection Indication: SINUSITIS, ACUTE NEC Start: 27-Jun-2013 Instruction Type: Patient Education [employer]; [employer] Start: 10-09-1990 Urine microalbumin profile DTAP,TDAP,TD (1 - Tdap) [facility] Start: 10-09-1989 HEPATITIS C SCREENING HEPATITIS C SONNY DIPTI [facility] Start: 10-09-1989 HIV SCREENING HIV SCREENING [facility] Start: 1970 HEPATITIS B (1 of 3 - 3-dose series) HEPATITIS B (1 of 3 - 3-dose series) [facility] Work Phone: NEGATED: Highlighted row has been ruled out! Planned Goals not documented [facility] Work Phone: Immunizations Immunization Date Immunization Notes Care Provider José Luis rodas 02-05-2020 influenza, injectabl e, quadrivalent, contains preservative Ronan Keller PA-C Work Phone: [facility]. Payers Date Payer Category Payer Unknown [id number] 2015 Unknown [id number] 1971 Unknown [id number] 1971 Unknown [id number] 1971 Unknown [id number] 1971 Unknown [id number] Social History Date Type Detail Facility Assertion Unknown if ever smoked [facility] Work Phone: Start: 04-17-2011 Tobacco smoking stat us AKIS Never smoked tobacco [facility] Start: 04-17-2011 Tobacco use and exposure Smokeless tobacco non-user [facility] Start: 10-02-2020 End: 12-07-2022 Alcohol intake Current non-drinker of alcohol (finding) [facility] Start: 1970 Sex Assigned At Not on file C [facility] Start: 12-09-2020 End: 12-07-2022 History of Social function [facility] Start: 12-09-2020 End: 12-07-2022 Tobacco use panel [facility] Adult Depression Screening Assessment 0 [facility] Tobacco Use: Tobacco Use: ; N ever smoker. [facility] Female [facility] [employer]; [employer] [employer]. Work Phone: Functional Status Date Assessment Result Facility NEGATED: Highlighted row Functional performance Functional status health issues are not documented [facility] Work Phone: Mental Status Date Assessment Result Facility NEGATED: Highlighted row Cognitive function [Interpretation] Cognitive status health issues are not documented [facility] Work Phone: Progress note 02-09-2023 Note Date & Type Note Facility 02-09-2023 Note HNO ID: [id number] Author: Yasmine Petit APRN.PLANNER INTERN Service: ? Author Type: Nurse Practitioner Type: Progress Notes Filed: 02/10/2023 7:11 AM Note Text: Hardware Developer offered: Patient declines. Yash Bailey is a 52 year old female who presents for vaginal yeast for 6 week(s). Treated per PCP with fluconazole x 2 and miconazole 2% x 3 nights between doses. Medications temporarily helps symptoms. Treated with Bactrim for labial abscess 12/07/2022. Vaginal discharge: thick white. Itching: YES Dyspareunia: YES Fever/chills: No Abdominal pain: Yes, lower pelvic pain Bladder: Negative for dysuria or frequency Bowel: No blood in stool, pain with BM, tarry stool, persistent diarrhea or constipation Any new sexual partners or concern for STD exposure: No Any history of STDs: None Does your partner have any new complaints: No, MRSA since October to testicle and beneath arm. She was treated 12/07/2022 for labial abscess - no culture was able to be sent. Are you currently taking any medications to treat vaginitis: No Do you use feminine sprays, douches or deodorants: No Menstrual cycle: no menses - Mirena IUD Contraception: IUD 10/08/2015 Last pap: 2020, normal Past medical, surgical, social history, medications and allergies reviewed and updated. OBJECTIVE: BP 100/60 Wt 158 lb (71.7kg) LMP 08/20/2008 GENERAL: Well developed, well nourished in no apparent distress ABDOMEN: soft, non-tender, and no masses PELVIC: external genitalia normal, normal Bartholin's glands, urethra, Fairview's glands, no vulvar lesions, no cervical lesions, small amount off-white discharge present, normal appearing perineal body and perianal region. IUD strings visualized. BIMANUAL: uterus normal size, shape and consistency, no adnexal masses, and non-tender ASSESSMENT/PLAN: 1. Recurrent vaginitis - ICD9: 616.10, ICD10: N76.0 (primary diagnosis) - MARK/TRICHOMONAS NAAT - BACTERIAL VAGINOSIS NAAT - Monistat 7 or generic - a applicator full at bedtime every night for 7 nights. 2. Dysuria - ICD9: 788.1, ICD10: R30.0 - UA POC - trace leuks - URINE CULTURE 3. Pelvic pressure in female - ICD9: 625.8, ICD10: R10.2 See above - URINE CULTURE - MARK/TRICHOMONAS NAAT - BACTERIAL VAGINOSIS NAAT Will notify of results. Follow- up as needed. Yasmine Petit APRN.PLANNER INTERN Medical Decision Making: Problems: Moderate: 1+ chronic illnesses with change Data: Unique test(s) ordered: 3+ Risk: Moderate: Drug management Medical Decision Making Level: 4 - Moderate [facility] Progress note 12-07-2022 Note Date & Type Note Facility 12-07-2022 Note HNO ID: [id number] Author: Taylor Salazar MD Service: ? Author Type: Physician Type: Progress Notes Filed: 12/07/2022 9:30 AM Note Text: Hardware Developer offered: Patient declines. Yash Bailey is a 52 year old female who presents for concerns of guarding painful vaginal lump that she noticed 4 to 5 days ago. Patient reports that her had MRSA lesions on his arm and groin that were treated with antibiotics a few weeks ago and then had a new lesion recently. Feels like this lesion is very consistent with his. States she has not noticed any drainage from the area but it is very tender to touch. She states that the lesion is getting larger. She is doing warm compresses to the area. She has not had a fever. Patient offers no other concerns today. OB History T2 L3 SAB0 IAB0 Ectopic0 Multiple1 Live Births0 Stave Jointer History LMP: 08/20/2008, IUD Age at Menarche: Age at First : Age at Menopause: Stave Jointer History Comments: Sexual Activity: Yes; Male; Mirena Contraception: Tubal Ligation, I.U.D. PAST MEDICAL HISTORY Diagnosis Date Allergic rhinitis, cause unspecified Allergic rhinitis Anxiety state, unspecified Anxiety state Dysmenorrhea Encounter for insertion or removal of intrauterine contraceptive device 08/23/2008 Mirena Excessive or frequent menstruation H/O abnormal mammogram Irregular menstrual cycle Irregular periods PAST SURGICAL HISTORY Procedure Laterality Date APPENDECTOMY 03/07/2007 and ruptured ovarian cyst BX OF BREAST; INCISIONAL 1996 Bx of breast, incisional Rt CARPAL TUNNEL RIGHT WRIST 12/2011 DELIVERY ONLY 2000,2003 , low cervical/x2 IUD INSERTION (DIE FILER DEPT)_*FL 08/23/2008 Mirena LEFT WRIST CARPAL TUNNEL ONLY 10/2011 LIGATE FALLOPIAN TUBE 2003 Tubal ligation/with c section FAMILY HISTORY Problem Relation Age of Onset Hypertension Mother Arthritis Mother Cancer Maternal Grandfather prostate Heart Paternal Grandfather Social History Tobacco Use Smoking status: Never Smokeless tobacco: Never Substance Use Topics Alcohol use: No Drug use: No Current Outpatient Medications Medication Sig rizatriptan (MAXALT REEFER ENGINEER) 10 mg disintegrating tablet DISSOLVE 1 TABLET IN MOUTH NEEDED topiramate (TOPAMAX) 25 mg tablet Take 1 tablet by mouth daily at bedtime. levonorgestrel (MIRENA) 20 mcg/24 hr (5 years) IUD Inserted in office buPROPion XL (WELLBUTRIN XL) 150 mg 24 hr tablet MULTI-VITAMIN ORAL Take by mouth. CALCIUM CARBONATE (CALCIUM 500 ORAL) Take by mouth. Calcium Carbonate-Vitamin D3 (VITAMIN D-3) 180-5,000 mg-unit tab Take by mouth. Cetirizine (ZYRTEC) 10 mg cap Take by mouth. citalopram (CELEXA) 40 mg ORAL tablet Take 40 mg by mouth once daily. No current facility-administered medications for this visit. Allergies As of Date: 12/07/2022 Allergen Noted Reaction ENVIRONMENTAL [OTHER] 01/07/2006 PENICILLINS 01/07/2006 Hives Fully Assessed 10/02/2020 REVIEW OF SYSTEMS Abdomen: no pain Bladder: no dysuria. Expanded ROS: GENERAL: Negative for fever Allergies and current medication updated:Yes EXAM: BP 100/62 Wt 153 lb (69.4kg) LMP 08/20/2008 GENERAL: pleasant, female in no apparent distress HEENT: Normocephalic, atraumatic, mucus membranes moist, and no lesions NECK: full range of motion DERMATOLOGY: Normal and without lesions PELVIC: Left labia majora with a swollen indurated area approximately 3 cm central location. Minimal surrounding erythema. Tender to touch. There is a central ulceration. No active drainage noted. Not flocculent. NEURO: alert and oriented x3,exam grossly non-focal EXTREMITIES: normal ASSESSMENT AND PLAN: Encounter Diagnosis ICD-10-CM 1. Labial abscess N76.4 2. The fact that her had MRSA recently I will place her on Bactrim DS twice daily for 7 days. Discussed with the patient not picking at the area. Call if worsening symptoms. 1 reviewed 3 times daily warm compresses or warm soaks. If area starts to drain patient was notified to come back to the office so I could perform wound cultures also discussed the patient at this point I am unable to perform an incision and drainage of the area. Medical Decision Making: Problems: Moderate: New problem with uncertain prognosis Risk: Moderate: Drug management Medical Decision Making Level: 4 - Moderate Taylor Leon MD [facility] History of Present illness Narrative 12-07-2022 Taylor Salazar MD - 12/07/2022 9:03 AM EDT Note Date & Type Note Facility 12-07-2022 History of Presen t illness Narrative Hardware Developer offered: Patient declines. Yash Bailey is a 52 year old female who presents for concerns of guarding painful vaginal lump that she noticed 4 to 5 days ago. Patient reports that her had MRSA lesions on his arm and groin that were treated with antibiotics a few weeks ago and then had a new lesion recently. Feels like this lesion is very consistent with his. States she has not noticed any drainage from the area but it is very tender to touch. She states that the lesion is getting larger. She is doing warm compresses to the area. She has not had a fever. Patient offers no other concerns today. OB History T2 L3 SAB0 IAB0 Ectopic0 Multiple1 Live Births0 Stave Jointer History LMP: 08/20/2008, IUD Age at Menarche: Age at First : Age at Menopause: Stave Jointer History Comments: Sexual Activity: Yes; Male; Mirena Contraception: Tubal Ligation, I.U.D. PAST MEDICAL HISTORY Diagnosis Date Allergic rhinitis, cause unspecified Allergic rhinitis Anxiety state, unspecified Anxiety state Dysmenorrhea Encounter for insertion or removal of intrauterine contraceptive device 08/23/2008 Mirena Excessive or frequent menstruation H/O abnormal mammogram Irregular menstrual cycle Irregular periods PAST SURGICAL HISTORY Procedure Laterality Date APPENDECTOMY 03/07/2007 and ruptured ovarian cyst BX OF BREAST; INCISIONAL 1995 Bx of breast, incisional Rt CARPAL TUNNEL RIGHT WRIST 12/2011 DELIVERY ONLY 2000,2003 , low cervical/x2 IUD INSERTION (DIE FILER DEPT)_*FL 08/23/2008 Mirena LEFT WRIST CARPAL TUNNEL ONLY 10/2011 LIGATE FALLOPIAN TUBE 2003 Tubal ligation/with c section FAMILY HISTORY Problem Relation Age of Onset Hypertension Mother Arthritis Mother Cancer Maternal Grandfather prostate Heart Paternal Grandfather Social History Tobacco Use Smoking status: Never Smokeless tobacco: Never Substance Use Topics Alcohol use: No Drug use: No Current Outpatient Medications Medication Sig rizatriptan (MAXALT REEFER ENGINEER) 10 mg disintegrating tablet DISSOLVE 1 TABLET IN MOUTH NEEDED topiramate (TOPAMAX) 25 mg tablet Take 1 tablet by mouth daily at bedtime. levonorgestrel (MIRENA) 20 mcg/24 hr (5 years) IUD Inserted in office buPROPion XL (WELLBUTRIN XL) 150 mg 24 hr tablet MULTI-VITAMIN ORAL Take by mouth. CALCIUM CARBONATE (CALCIUM 500 ORAL) Take by mouth. Calcium Carbonate-Vitamin D3 (VITAMIN D-3) 180-5,000 mg-unit tab Take by mouth. Cetirizine (ZYRTEC) 10 mg cap Take by mouth. citalopram (CELEXA) 40 mg ORAL tablet Take 40 mg by mouth once daily. No current facility-administered medications for this visit. Allergies As of Date: 12/07/2022 Allergen Noted Reaction ENVIRONMENTAL [OTHER] 01/07/2006 PENICILLINS 01/07/2006 Hives Fully Assessed 10/02/2020 REVIEW OF SYSTEMS Abdomen: no pain Bladder: no dysuria. Expanded ROS: GENERAL: Negative for fever Allergies and current medication updated:Yes EXAM: BP 100/62 Wt 153 lb (69.4kg) LMP 08/20/2008 GENERAL: pleasant, female in no apparent distress HEENT: Normocephalic, atraumatic, mucus membranes moist, and no lesions NECK: full range of motion DERMATOLOGY: Normal and without lesions PELVIC: Left labia majora with a swollen indurated area approximately 3 cm central location. Minimal surrounding erythema. Tender to touch. There is a central ulceration. No active drainage noted. Not flocculent. NEURO: alert and oriented x3,exam grossly non-focal EXTREMITIES: normal ASSESSMENT AND PLAN: Encounter Diagnosis ICD-10-CM 1. Labial abscess N76.4 2. The fact that her had MRSA recently I will place her on Bactrim DS twice daily for 7 days. Discussed with the patient not picking at the area. Call if worsening symptoms. 1 reviewed 3 times daily warm compresses or warm soaks. If area starts to drain patient was notified to come back to the office so I could perform wound cultures also discussed the patient at this point I am unable to perform an incision and drainage of the area. Medical Decision Making: Problems: Moderate: New problem with uncertain prognosis Risk: Moderate: Drug management Medical Decision Making Level: 4 - Moderate Taylor Leon MD documented in this encounter [facility] Clinical Note 10-06-2022 Note Date & Type Note Facility 10-06-2022 Note [facility] HISTORY & PHYSICAL NAME ACCOUNT SEX AGE ADMIT DISCHARGE PT MED. RECORD# NUMBER DATE DATE TYPE YASH BAILEY [id number] F 51 10/05/22 2 [id number] ROOM: [facility] DATE OF : 72 DICTATING PHYSICIAN: Regan Lawton CHIEF COMPLAINT: Colon cancer screen. HISTORY OF PRESENT ILLNESS: Mrs. Seboe is a 51-year-old female who presents for colon cancer screening. She denies any worrisome signs or symptoms at this time. She reports having a normal colonoscopy in 2003. PAST MEDICAL HISTORY: None. MEDICATIONS: See MAR. ALLERGIES: Penicillin. FAMILY HISTORY: Noncontributory. SOCIAL HISTORY: Negative x3. REVIEW OF SYSTEMS: Ten system review of systems are negative. PHYSICAL EXAMINATION GENERAL APPEARANCE: In general, she is alert, oriented, and appropriate with no acute distress. VITAL SIGNS: On exam, she is afebrile. Vital signs stable, within normal limits. LUNGS: Lungs are clear to auscultation bilaterally. HEART: Regular rate and rhythm. ABDOMEN: Soft, nontender, and nondistended. EXTREMITIES: Extremities show no cyanosis, edema, or gross deformities. NEUROLOGIC: GCS of 15. Cranial nerves II-XII are grossly intact. IMPRESSION: This is a 51-year-old female requiring colon cancer screening. PLAN: I discussed the risks, benefits, and alternatives of colonoscopy. All questions were answered. She voiced understanding and agreement with the plan and procedure. Page 1 of 2 YASH BAILEY History & Physical YASH BAILEY :1970 Dictated By: Regan Lawton MD 10/05/22 07:38 JOB #: [id number] Transcribed By: [email or web address] 10/05/22 09:14 Electronically signed by: E-SIGN DR. LAWTON 10/06/22 08:47 Update to H&P: [ ] No changes: I have examined the patient and reviewed the H&P and there are no changes. [ ] As previously dictated with the following changes: PHYSICIAN SIGNATURE: TIME: DATE: Page 2 of 2 YASH BAILEY History & Physical [facility] Note 08-14-2022 Telephone Encounter - Connie Donahue - 08/14/2022 1:41 PM EDT Note Date & Type Note Facility 08-14-2022 Miscellaneous Notes Formattin g of this note is different from the original. Pharmacy verified in [employer]. Patient has been identified by name and date of : Yes Patient aware RX will be sent to pharmacy. No need to notify patient. Pharmacy phones for refill(s): Requested Prescriptions Pending Prescriptions Disp Refills rizatriptan (MAXALT REEFER ENGINEER) 10 mg disintegrating tablet [Pharmacy Med Name: Rizatriptan Benzoate 10 MG Oral Tablet Disintegrating] 12 tablet 0 Sig: DISSOLVE 1 TABLET IN MOUTH NEEDED Date of last office visit : 10/02/2020 Date of next office visit : Visit date not found Last 2 Encounter Wt Readings: Date: Wt: 10/02/2020 70.3 kg (155 lb) 08/26/2020 69.4 kg (153 lb) Please advise. Connie Donahue documented in this encounter [facility] History of Past illness Narrative 04-17-2011 Note Date & Type Note Facility documented as of this encounter (statuses as of 08/15/2022) [facility] History of Past illness Narrative 04-17-2011 Note Date & Type Note Facility documented as of this encounter (statuses as of 12/07/2022) [facility] Evaluation note Note Date & Type Note Facility documented in this encounter [facility] Summary Purpose Family History Coronary Artery Disease Status:Active Comments :Father. Paternal Grandfather. Advance Directives No Advanced Directives Records FoundNo Advanced Directives Records FoundNo Advanced Directives Records FoundNo Advanced Directives Records Found Hospital Course Note Discharge Summary PHYSICAL T HERAPY Referral/Discharge Information: Date of Discharge: 03/15/19 Date of Last Visit: 03/15/19 Date of Evaluation: 02/06/19 Number of Attended Visits: 7 Referred by: Daniel Agee Referred for: Neck and L shoulder Pain Problems/Issues Addressed: (Address decreased ROM at L shoulder and cervical spine, progression cervical and scapular stabilization exercises, as well as address myofascial and joint restrictions) Status at Discharge: (unable to assess due to pt self-discharge and cancelled last re-assessment visit) Reason for Discharge: Failed to schedule and/or to keep follow-up appointment(s). Signatures Electronically signed by : Deepika Palma PT; May 18 2019 4:30PM EST (Author) Additional Source Comments INFORMATION SOURCE (unrecogn ized section and content) DATE CREATED AUTHOR AUTHOR'S ORGANIZ ATION 10/11/2022 [facility] DATE CREATED AUTHOR AUTHOR'S ORGANIZ ATION 01/06/2023 [facility] DATE CREATED AUTHOR AUTHOR'S ORGANIZ ATION 02/11/2023 [facility] Source Comments (unrecognize d section and content) In the event this informatio n is protected by the Federal Confidentiality of Alcohol and Drug Abuse Patient Records regulations: The Federal rules restrict any use of the information to criminally investigate or prosecute any alcohol or drug abuse patient[facility] event this information is protected by the Federal Confidentiality of Alcohol and Drug Abuse Patient Records regulations: The Federal rules restrict any use of the information to criminally investigate or prosecute any alcohol or drug abuse patient.[facility] Reason for Visit (unrecogniz ed section and content) Reason Comments Vaginal Problem Care Teams (unrecognized sec tion and content) [facility] Clinical [facility]eter Relationship Specialty Start Date End Date Son Porter [address] [place] [place] [address] [place] [id number] PCP - General Family Medicine 04/17/11 FOR RECORDS PERTAINING TO PATIENTS WHO ARE OR HAVE BEEN ENROLLED IN A CHEMICAL DEPENDENCY/SUBSTANCEABUSE PROGRAM, SOME INFORMATION MAY BE OMITTED. This clinical summary was aggregated from multiple sources. Caution should be exercised in using it in the provision of clinical care. This summary normalizes information from multiple sources, and as a consequence, information in this document may materially change the coding, format and clinical context of patient data. In addition, data may be omitted in some cases. CLINICAL DECISIONS SHOULD BE BASED ON THE PRIMARY CLINICAL RECORDS. [employer] provides no warranty or guarantee of the accuracy or completeness of information in this document.
== END | disposition home or self-care (01) ==
LOC: RAD 12:49
PROVIDERS: PCP Physician Assistant; Referring Provider Anesthesiology Pain Medicine; Visit Provider Anesthesiology Pain Medicine
DX: M54.17 Radiculopathy, lumbosacral region (principal)
CPT/HCPCS: 72114